=== PATIENT | male | born 1960 | race Caucasian/White ===

== ENCOUNTER 2017-05-21 23:34 | Inpatient (IN) | payer OTHER ==
[~2017-05-21] VITALS: Ht 170.2 cm; Wt 69.0 kg
[~2017-05-21 23:34] MED LIST: CHLO25CA9 PO; IBUP800T25 PO; LISI10TA2 PO
[2017-05-22] VITALS (7 sets, daily range): BP systolic 94–150; BP diastolic 54–87; PULSE 54–70; RESP 18; TEMP 98.5; Ht 170.2 cm; Wt 69.0 kg
[2017-05-22] MEDS ORDERED: HYDROmorphONE 1 MG/ML SYG IV STA (00:23)
[2017-05-22] MEDS ORDERED: ONDANSETRON 4 MG INJ IV STA (00:23)
[2017-05-22] MEDS ORDERED: SOD CHLORIDE 0.9% 1,000 ML IV STA (00:23)
[2017-05-22 00:39] LABS: URINE BLOOD (Dip) POC 1+ (NEGATIVE)
[2017-05-22] MEDS ORDERED: IOHEXOL 300MG/ML 150 ML BTL ONE (00:57)
[2017-05-22] MEDS ORDERED: SOD CHLORIDE 0.9% 100 ML ONE (00:57)
[2017-05-22 01:28] LABS: BASOPHIL # 0.1 10^3/ul (0.0-0.1); BASOPHILS % 0.6 % (0.0-2.0); HEMATOCRIT 43.8 % (42.0-52.0); HEMOGLOBIN 15.5 g/dl (14.0-18.0); LYMPHOCYTES # 1.3 10^3/ul (0.8-2.9); LYMPHOCYTES % 14.9 % (15.0-51.0); MEAN CORPUSCULAR HEMOGLOBIN 33.2 pg (29.0-33.0); MEAN CORPUSCULAR HGB CONC 35.4 g/dl (32.0-37.0); MEAN CORPUSCULAR VOLUME 93.8 fl (82.0-101.0); MEAN PLATELET VOLUME 10.3 fl (7.4-10.4); MONOCYTE # 0.7 10^3/ul (0.3-0.9); MONOCYTES % 7.7 % (0.0-11.0); NEUTROPHIL # 6.6 10^3/ul (1.6-7.5); NEUTROPHILS % 75.2 % (39.0-77.0); PLATELET COUNT 212 10^3/UL (140-415); RED BLOOD COUNT 4.67 10^6/ul (4.70-6.10); RED CELL DISTRIBUTION WIDTH 12.3 % (11.5-14.5); WHITE BLOOD COUNT 8.8 10^3/ul (4.8-10.8)
[2017-05-22 01:53] LABS: INR 0.96; PROTIME 12.8 Sec (12.2-14.2)
[2017-05-22 01:58] LABS: ALANINE AMINOTRANSFERASE 146 IU/L (13-69); ALBUMIN 4.7 g/dl (3.3-4.9); ALBUMIN/GLOBULIN RATIO 1.34; ALKALINE PHOSPHATASE 118 IU/L (42-121); ANION GAP 12 (8-16); ASPARTATE AMINO TRANSFERASE 233 IU/L (15-46); BILIRUBIN,INDIRECT 0.5 mg/dl (0-1.1); BILIRUBIN,TOTAL 0.5 mg/dl (0.2-1.3); BLOOD UREA NITROGEN 27 mg/dl (7-20); CALCIUM 9.7 mg/dl (8.4-10.2); CARBON DIOXIDE 30 mmol/L (21-31); CHLORIDE 100 mmol/L (97-110); CREATININE 1.15 mg/dl (0.61-1.24); GLUCOSE 125 mg/dl (70-220); POTASSIUM 3.8 mmol/L (3.5-5.1); SODIUM 138 mmol/L (135-144); TOTAL PROTEIN 8.2 g/dl (6.1-8.1)
[2017-05-22] MEDS ORDERED: HYDROmorphONE 1 MG/ML SYG IM STA (02:10)
[2017-05-22 02:19] LABS: ETHANOL < 10.0 mg/dl; TROPONIN-I < 0.012 ng/ml (0.00-0.12)
--- NOTE | 2017-05-22 02:19 | RADRPT ---
PROCEDURE: CT chest, abdomen and pelvis with contrast. CLINICAL INDICATION: Injury and pain. TECHNIQUE: CT of the chest, abdomen and pelvis was performed on a multi-detector high-resolution CT scanner. Contiguous axial images were obtained after the administration of 100 cc of Omnipaque-3 00 intravenous contrast. Coronal and sagittal reformatted images were also obtained. Images were r eviewed on the PACS workstation. One or more of the following dose reduction techniques were used: - Automated exposure control. - Adjustment of the mA and/or kV according to patient size. - Use of iterative reconstruction technique. Exam CTD/vol = 10.73 mGy. Total exam DLP = 839.83 mGy-cm. COMPARISON: CT abdomen and pelvis done 03/01/2014. FINDINGS: Chest: There is no evidence of chest wall mass. The visualized thyroid gland is unremarkable. Ther e are no enlarged axillary lymph nodes. There are no enlarged mediastinal or hilar lymph nodes. Th e heart is normal in size. There is no pericardial thickening or effusion. The aorta is of normal course and caliber. There is no parenchymal consolidation or pleural effusion. The central tracheo bronchial tree is within normal limits. There is mild bibasilar atelectasis. There is a tiny left a pical pneumothorax measuring approximately 1%. Abdomen: The liver is normal in size. There is no focal mass or dilatation of the biliary tree. T he gallbladder is not distended. The spleen, pancreas and bilateral adrenal glands are within rekha l limits. Bilateral kidneys are normal in size with symmetric enhancement. There are multiple beatris l cysts bilaterally. There is no hydronephrosis or hydroureter. There is no retroperitoneal adenopa thy. The abdominal aorta is of normal caliber. There is moderate retained stool within the colon. There is no bowel obstruction or free air. Ther e is no diverticulosis or diverticulitis. There is no ascites. Pelvis: The bladder is unremarkable. The prostate and seminal vesicles are within normal limits. There is no significant pelvic adenopathy or free fluid. Evaluation of the osseous structures demonstrates nondisplaced fractures of the right posterolateral seventh, eighth, ninth and tenth ribs. There is a fracture of the right medial 10th rib. There are nondisplaced fractures of the left posterior fifth, sixth and seventh ribs. There is an old fracture of the right clavicle. IMPRESSION: Bilateral nondisplaced rib fractures. Tiny left apical pneumothorax. Mild bibasilar atelectasis. A call report was made to Dr. Ledesma 02:18 a.m. .Merrick Sanchez MD, MD Date Time Electronically viewed and signed by .Merrick Sanchez MD, MD on 05/22/2017 02:19 .T/
--- NOTE | 2017-05-22 05:03 | ERD ---
ER Documentation Chief Complaint Date/Time DATE: 05/22/17 TIME: 04:54 Chief Complaint working under his car when car moved and hit him c/o rib pain and back pain HPI 56-year-old man complains of left lateral costal margin pain after a car fell on top of vein while he was working beneath it. The car was on top of him for about 5 minutes,4 people help physically lift the car off of him. He did not suffer any head or neck injury, no paresis or paresthesias, no chest pain or shortness of breath. ROS All systems reviewed and are negative except as per history of present illness. Medications Home Meds Active Scripts Chlordiazepoxide* (Chlordiazepoxide*) 25 Mg Capsule, 25 MG PO BID Y for CONTROL WITHDRAWAL SYMPTOMS, #14 CAP Prov:SEBASTIÁN FONSECA MD 03/04/16 Reported Medications Lisinopril* (Lisinopril*) 10 Mg Tablet, 10 MG PO DAILY, #30 TAB 03/04/16 Ibuprofen* (Ibuprofen*) 800 Mg Tab, 800 MG PO TID, TAB 09/30/14 Allergies Allergies: Coded Allergies: No Known Allergy (Unverified , 03/17/14) PMhx/Soc Hypertension History of Surgery: Yes (APPY, KIDNEY STONES REMOVAL) Anesthesia Reaction: No Hx Neurological Disorder: No Hx Respiratory Disorders: No Hx Cardiac Disorders: Yes (HTN TAKES MED SOMETIMES, BORDERLINE CHOL) Hx Psychiatric Problems: Yes (DEPRESSION NO MED) Hx Miscellaneous Medical Probl: No Hx Alcohol Use: Yes (2XWEEK 12 BEERS, LAST DRANK LAST NIGHT 12 BEERS) Hx Substance Use: No Hx Tobacco Use: Yes (27 YEARS AGO QUIT) Smoking Status: Former smoker FmHx Family History: No diabetes Physical Exam Vitals Vital Signs Date Time Temp Pulse Resp B/P Pulse Ox O2 Delivery O2 Flow Rate FiO2 05/22/17 00:39 84 24 157/96 95 05/21/17 23:41 98.2 84 20 203/102 100 Physical Exam GENERAL: Well-developed, well-nourished, well-hydrated, in no apparent distress , looks nontoxic in appearance HEENT: Moist mucous membranes, pink conjunctiva, no cervical spine tenderness or step-off deformities, no goiter, no jaundice or icterus, extraocular movements intact without pain. No submandibular induration, and no pharyngeal erythema NEURO: Alert and oriented 3, cranial nerves II through XII intact bilaterally, pupils equal round reactive to light, no focal deficits or facial asymmetry, sensation intact distally Strength 5/5 in upper and lower extremities bilaterally CARDIAC: Regular rate and rhythm, no murmurs rubs or gallops LUNGS: Clear bilaterally no wheezing crackles or stridor ABDOMEN: Soft nontender, no guarding, no rigidity, no rebound, no psoas sign no obturator sign. Normoactive bowel sounds SKIN: Warm and dry to touch, no abrasions, contusions, or hematomas, no lacerations, no ecchymosis, no target lesions, and without ulcers EXTREMITIES: No clubbing cyanosis or edema, calves are bilaterally symmetrical, no Homans sign, no popliteal cord sign. Distal pulses equal and bilateral PSYCH: Normal affect without agitation or irritability Result Diagram: 05/22/172905/22/1729 Results 24 hrs Laboratory Tests Test 05/22/17 00:30 05/22/17 00:47 White Blood Count 8.810^3/ul Red Blood Count 4.6710^6/ul Hemoglobin 15.5g/dl Hematocrit 43.8% Mean Corpuscular Volume 93.8fl Mean Corpuscular Hemoglobin 33.2pg Mean Corpuscular Hemoglobin Concent 35.4g/dl Red Cell Distribution Width 12.3% Platelet Count 40374^3/UL Mean Platelet Volume 10.3fl Neutrophils % 75.2% Lymphocytes % 14.9% Monocytes % 7.7% Eosinophils % 0.0% Basophils % 0.6% Nucleated Red Blood Cells % 0.0/100WBC Neutrophils # 6.610^3/ul Lymphocytes # 1.310^3/ul Monocytes # 0.710^3/ul Eosinophils # 0.010^3/ul Basophils # 0.110^3/ul Nucleated Red Blood Cells # 0.010^3/ul Prothrombin Time 12.8Sec Prothrombin Time Ratio 1.0 INR International Normalized Ratio 0.96 Sodium Level 138mmol/L Potassium Level 3.8mmol/L Chloride Level 100mmol/L Carbon Dioxide Level 30mmol/L Anion Gap 12 Blood Urea Nitrogen 27mg/dl Creatinine 1.15mg/dl Glucose Level 125mg/dl Calcium Level 9.7mg/dl Total Bilirubin 0.5mg/dl Direct Bilirubin 0.00mg/dl Indirect Bilirubin 0.5mg/dl Aspartate Amino Transf (AST/SGOT) 233IU/L Alanine Aminotransferase (ALT/SGPT) 146IU/L Alkaline Phosphatase 118IU/L Troponin I < 0.012ng/ml Total Protein 8.2g/dl Albumin 4.7g/dl Globulin 3.50g/dl Albumin/Globulin Ratio 1.34 Lipase 142U/L Ethyl Alcohol Level < 10.0mg/dl Bedside Urine pH (LAB) 7.0 Bedside Urine Protein (LAB) Trace Bedside Urine Glucose (UA) Negative Bedside Urine Ketones (LAB) 1+ Bedside Urine Blood 1+ Bedside Urine Nitrite (LAB) Negative Bedside Urine Leukocyte Esterase (L Negative Current Medications Medications (Trade) Dose Ordered Sig/Blayne Route PRN Reason Start Time Stop Time Status Last Admin Dose Admin Sodium Chloride (NS) 1,000 ml @ 1,000 mls/hr Q1H STAT IV 05/22/17 00:23 05/22/17 01:22 DC 05/22/17 00:39 Hydromorphone HCl (Dilaudid) 1 mg ONCE STAT IV 05/22/17 00:23 05/22/17 00:25 DC 05/22/17 00:39 Ondansetron HCl 4 mg 4 mg ONCE STAT IV 05/22/17 00:23 05/22/17 00:26 DC 05/22/17 00:39 Sodium Chloride (NS) 100 ml @ ud STK-MED ONCE .ROUTE 05/22/17 00:57 05/22/17 00:58 DC Iohexol (Omnipaque 300mg/ ml) 150 ml STK-MED ONCE .ROUTE 05/22/17 00:57 05/22/17 00:58 DC Hydromorphone HCl (Dilaudid) 1 mg ONCE STAT IM 05/22/17 02:10 05/22/17 02:11 DC 05/22/17 02:15 Procedures/MDM IV line was established patient was placed on cardiac surgeon rhythm strip revealed a sinus rhythm at about 80 bpm with upright P and T waves. Patient was afebrile. I administered 1 L normal saline intravenously and hydromorphone 1 mg IV [address] scan of the chest, abdomen, pelvis with IV contrast was performed given his trauma. There was bilateral rib fractures minimally displaced with "tiny" left pneumothorax as read to me by the radiologist over the phone. No other acute traumatic injury noted. CBC and electrolytes were normal, liver function tests are normal, troponin was negative. Urinalysis negative for infection. Will be admitted to telemetry setting for continued medical management and repeat imaging, at this time his breathing is unlabored and his oxygen saturation is normal, I feel the risks of chest tube outweigh the benefits as his small pneumothorax may resolve spontaneously. Departure Diagnosis: Primary Impression: Multiple fractures of ribs, bilateral, initial encounter for closed fracture Additional Impression: Pneumothorax Pneumothorax type: traumatic Encounter type: initial encounter Qualified Code: S27.0XXA - Traumatic pneumothorax, initial encounter Condition: SEBASTIÁN Price MD May 22, 2017 05:03
[2017-05-22] MEDS ORDERED: NACL 0.9% 3 ML SYG IV SCH (06:00)
[2017-05-22] MEDS ORDERED: ACETAMINOPHEN 325 MG TAB PO PRN (06:00)
[2017-05-22] MEDS ORDERED: LORAZEPAM 2 MG INJ IV PRN ×2 (06:00)
[2017-05-22] MEDS ORDERED: LORAZEPAM 0.5 MG TAB PO PRN (06:00)
[2017-05-22] MEDS ORDERED: ALBUTEROL/IPRATROPIUM (NEB) 3 ML AMP HHN PRN (06:00)
[2017-05-22] MEDS ORDERED: ONDANSETRON 4 MG INJ IV PRN (06:00)
--- NOTE | 2017-05-22 06:48 | HP ---
Date/Time of Note Date/Time of Note DATE: 05/22/17 TIME: 06:40 Assessment/Plan VTE Prophylaxis VTE Prophylaxis Intervention: SCD's Assessment/Plan Assessment/Plan ASSESSMENT 56-year-old male with history of hypertension who was found to have bilateral non-displaced rib fracture and tiny left-sided pneumothorax s/p traumatic injury PLAN -will provide pain medication as needed -He will be placed on oxygen [id number] for the tiny pneumothorax noted on the chest CT. consider pulmonary consult -Patient also reported drinking 12 cans of beer 2 or 3 times a week, last drink being yesterday. He takes Valium for withdrawal symptoms. As such, I will place him on a banana bag and a Librium with as needed Ativan -Continue lisinopril -Elevated transaminases is most likely from alcoholic liver disease, but will obtain right upper quadrant ultrasound. HPI/ROS Admit Date/Time Admit Date/Time Hx of Present Illness This is a 56-year-old male with a history of hypertension who presented to the emergency department complaining of total body pain, mainly on his ribs. Patient was working underneath a car when it fell on top of him. In the ER, CT chest showed nondisplaced bilateral rib fracture and tiny left-sided pneumothorax. Although not uploaded on the system, was told by the ER physician that the CT abdomen/pelvis was done which is negative for acute findings. Labs shows AST and ALT in the 200 range otherwise within acceptable range. He said he drinks about 12 cans of beer 2 or 3 times a week, last drink being yesterday. He denies shortness of breath. PMH/Family/Social Past Medical History Medical History: hypertension Social History Alcohol Use: other (12 counts of beer 2 or 3 times a week) Smoking Status: Unknown if ever smoked Drug Use: none Exam/Review of Systems Vital Signs Vitals Vital Signs Date Time Temp Pulse Resp B/P Pulse Ox O2 Delivery O2 Flow Rate FiO2 05/22/17 05:38 98.5 65 12 107/76 97 Room Air Exam Constitutional: alert, oriented, well developed Head: atraumatic, normocephalic Eyes: EOMI, PERRL Respiratory: clear to auscultation, normal air movement Cardiovascular: nl pulses, regular rate and rhythm Gastrointestinal: soft, tender Musculoskeletal: other (Palpation of the ribs bilaterally causes tenderness) Extremities: normal pulses Labs Result Diagram: 10/2/17 0030 05/22/17 003 Medications Medications Current Medications Lorazepam (Ativan) 2 mg Q1H PRN IV alcohol withdrawal; Start 05/22/17 at 06:00 Chlordiazepoxide 50 mg 50 mg TID PO ; Start 05/22/17 at 09:00; Stop 05/24/17 at 08:00 Multivitamins 10 ml/Thiamine HCl 100 mg/Folic Acid 1 mg/Sodium Chloride 1,011.2 ml @ 125 mls/ hr DAILY@09 IVPB ; Start 05/22/17 at 09:00; Stop 05/25/17 at 08: 00 Sodium Chloride (NS) 1,000 ml @ 100 mls/hr Q10H IV ; Start 05/22/17 at 06:00; Stop 05/23/17 at 23:00 Lorazepam (Ativan) 0.5 mg Q8H PRN PO ANXIETY; Start 05/22/17 at 06:00 Ondansetron HCl (Zofran Inj) 4 mg Q6H PRN IV NAUSEA AND/OR VOMITING; Start 05/22/17 at 06:00 Acetaminophen (Tylenol Tab) 650 mg Q6H PRN PO PAIN LEVEL 1-3 OR FEVER; Start 05/22/17 at 06:00 Morphine Sulfate (morphine) 4 mg Q4H PRN IV PAIN LEVEL 7-10; Start 05/22/17 at 06:00 Lisinopril (Zestril) 10 mg DAILY PO ; Start 05/22/17 at 09:00 ALESHA OLIVO MD May 22, 2017 06:48
[2017-05-22] MEDS: morphine 4 MG/ML VIAL IV PRN ×3 (07:24→18:39)
--- NOTE | 2017-05-22 07:31 | RADRPT ---
PROCEDURE: US Abdomen (right upper quadrant). CLINICAL INDICATION: Right upper quadrant abdomen pain. TECHNIQUE: Multiple real-time longitudinal and transverse images of the right upper quadrant of th e abdomen were acquired utilizing a curved array transducer. Images were reviewed on a high-resoluti on PACS workstation. COMPARISON: CT scan of the abdomen and pelvis dated 03/01/2014. FINDINGS: The liver is normal in size and normal in echogenicity. There is no focal hepatic lesion. Color Doppler and pulsed Doppler sonography demonstrate normal a ntegrade flow in the portal vein. The gallbladder is normal with no stones or wall thickening. There is no pericholecystic fluid kelly ection. The bile ducts are normal with the common bile duct measuring 4.7 mm in diameter. The visualized portions of the pancreas are unremarkable with obscuration of the tail of the pancrea s. No free fluid is present. The right kidney measures 10.0 cm. There is normal echogenicity of the right kidney. There is no perinephric fluid collection. No hydronephrosis, mass, or calculus is seen. IMPRESSION: 1. Unremarkable right upper quadrant abdomen ultrasound. RPTAT: QQ .Malcolm Humphries MD, Date Time Electronically viewed and signed by .Malcolm Humphries MD, on 05/22/2017 07:30 .R/
[2017-05-22] MEDS: CHLORDIAZEPOXIDE 25 MG CAP PO SCH ×2 (08:56→14:23)
[2017-05-22] MEDS ORDERED: HYDROmorphONE 1 MG/ML SYG IV PRN (09:00)
[2017-05-22] MEDS ORDERED: LISINOPRIL 10 MG TAB PO SCH (09:00)
[2017-05-22] MEDS ORDERED: MULTIVITAMINS 10 ML, THIAMINE 100 MG, FOLIC ACID 1 MG in SOD CHLORIDE 0.9% 1,000 ML IVPB SCH (09:00)
[2017-05-22] MEDS ORDERED: FOLIC ACID 1 MG TAB PO ONE (09:30)
[2017-05-22] MEDS ORDERED: THIAMINE 100 MG TAB PO ONE (09:30)
[2017-05-22] MEDS: SOD CHLORIDE 0.9% 1,000 ML IV SCH ×2 (10:39→17:05)
--- NOTE | 2017-05-22 10:43 | RADRPT ---
PROCEDURE: XR Chest. CLINICAL INDICATION: Left pneumothorax. Trauma. TECHNIQUE: Two views. Frontal and lateral. COMPARISON: CT scan of the chest done earlier the same day. FINDINGS: The lungs are clear. The heart size is normal. There is no pleural effusion. The pneumothorax seen on CT scan is not visualized with plain radiogra ph. There is an old healed fracture of the midshaft of the right clavicle. There is an acute fracture of the right eighth rib. IMPRESSION: 1. No pneumothorax visualized with plain radiograph. 2. Old healed fracture of right clavicle. 3. Acute fracture of right eighth rib. RPTAT: QQ .Malcolm Humphries MD, MD Date Time Electronically viewed and signed by .Malcolm Humphries MD, on 05/22/2017 10:43 .R/
--- NOTE | 2017-05-22 14:47 | PDOCDIS ---
Discharge Instructions CONDITION Patient Condition: Stable ACTIVITY: Activity Restrictions: Slowly Increase Activity FOLLOW UP/APPOINTMENTS Follow-up Plan Use the incentive spirometer as directed by the nurse Follow up with your regular doctor within 3 days for repeat xrays of your ribs/ lungs Use el espirmetro de incentivo segn las instrucciones de la enfermera Siga con russ mdico habitual dentro de los 3 kwon para radiografas repetidas de lesly costillas / pulmones OTHER ORDERS: Other Orders: What Are Rib Fractures? Rib fractures most commonly result from strong blows to the chest such as during car crashes, ATV crashes, or falls. The terms rib fractures, broken ribs, and cracked ribs all mean the same thing. Most patients have twelve ribs on each side. The more ribs that are fractured, the more likely a patient is to develop significant complications. How Are Rib Fractures Treated? Pain control is most important in treating patients with rib fractures. Broken ribs hurt; people with these injuries are understandably hesitant to take deep breaths and cough. Deep breathing and coughing are very important in keeping your lungs expanded and clear of mucous. Narcotic pain medicines, in conjunction with anti-inflammatory medicines, are usually used to treat rib fracture pain so that patients are able to breath, cough, and move. Patients with severe pain which is limiting their breathing and activity may have an epidural catheter placed while in the hospital to control their pain. Prior to discharge from the hospital, pain needs to be controlled well with oral medicines. Very rarely, rib fractures which are severely displaced and/or are sticking into the lung may require surgical repair. As a rule, we generally do not recommend wrapping the chest as a treatment for rib fractures as it limits the ability to take deep breaths. After Discharge Instructions: -Continued pain control is very important to complete recovery. Pain should be controlled so that deep breathing, coughing, using the spirometer, and walking multiple times daily are all possible. Broken rib pain will slowly improve over the course of 6-12 weeks. Some patients notice tenderness for as long as 6 months. -Keep follow-up appointments as directed. See a Primary Care Doctor for a follow -up x-ray to ensure continued evidence of healing will be arranged prior to discharge. -If worsening shortness of breath, chest tightness or pressure, or difficulty breathing develops seek emergency medical care. -Signs or symptoms of pneumonia include fevers, chills, feeling short of breath , cough, and malaise (generally not feeling well). If these symptoms arise call your Primary Care Doctor, or seek emergency medical care. Qu son las fracturas de park? Las fracturas de la park resultan ms comnmente de golpes nelly al pecho tales negrita erick choques de coche, accidentes de ATV, o cadas. Los trminos fracturas de costillas, costillas rotas y costillas agrietadas significan lo mismo. La mayora de los pacientes doce costillas a cada lado. Cuantas ms costillas se fracturen, ms probable es que un paciente desarrolle complicaciones. Resource Conservationist se tratan las fracturas de park? El control del dolor es ms importante en el tratamiento de pacientes con fracturas costillas. Las costillas rotas le duelen; personas con estos las lesiones son comprensiblemente vacilantes a chris respiraciones profundas y tos. La respiracin profunda y la tos son muy importante para mantener los pulmones expandidos y libres de mucosidad. Los medicamentos narcticos para el dolor, los medicamentos anti-inflamatorios, se utilizan generalmente para tratar el dolor de fractura de park para que los pacientes son capaces de respirar, tos y moverse. Los pacientes con dolor dain que est limitando russ respiracin y actividad pueden tener jagjit epidural cateter colocado en el hospital para controlar russ dolor. Antes de salir del hospital, el dolor debe ser kale controlado con medicamentos orales. Muy raramente, las fracturas de park que se desplazan gravemente y / o se pegan en el pulmn pueden requerir ciruga reparar. Por ivan general, generalmente no recomendamos envolver el trax negrita un tratamiento para las fracturas de park ya que limita el capacidad de chris respiraciones profundas. Despus de las Instrucciones de namrata: -Continuado control del dolor es muy importante para completar la recuperacin. El dolor debe ser controlado para que respirar, toser, usar el espirmetro y caminar varias veces al da son posibles. El dolor de park roto lentamente en el curso de 6-12 semanas. Algunos pacientes notan ternura erick tanto tiempo negrita 6 meses. -Mantenga las citas de seguimiento segn las instrucciones. Consulte a un m dico de atencin primaria para jagjit radiografa de seguimiento para asegurarse de que la evidencia continua de curacin se arreglar antes del namrata. -Si empeora la dificultad para respirar, se siente opresin o presin en el pecho o si tiene dificultad para respirar busque urgencia atencin mdica. -Signos o sntomas de neumona incluyen fiebres, escalofros, falta de aliento, tos y malestar (generalmente no sentirse kale). Si aparecen estos sntomas, llame a russ mdico de atencin primaria o busque atencin de emergencia. atencin mdica. ADILSON URIOSTEGUI MD May 22, 2017 14:47
[2017-05-22] MEDS ORDERED: NAPR-265 PO (14:49)
[2017-05-22] MEDS ORDERED: HYDR-906 PO (14:51)
--- NOTE | 2017-05-22 14:55 | DS ---
Date/Time of Note Date/Time of Note DATE: 05/22/17 TIME: 14:53 Discharge Summary Admission/Discharge Info Admit Date/Time May 22, 2017 at 02:28 Discharge Date/Time Discharge Diagnosis acute nondisplaced R 8th rib fracture Patient Condition: Stable Procedures CXR 10.2 (11am) IMPRESSION: 1. No pneumothorax visualized with plain radiograph. 2. Old healed fracture of right clavicle. 3. Acute fracture of right eighth rib. CT chest 10.2 (2am) IMPRESSION: Bilateral nondisplaced rib fractures. Tiny left apical pneumothorax. Mild bibasilar atelectasis. Hx of Present Illness This is a 56-year-old male with a history of hypertension who presented to the emergency department complaining of total body pain, mainly on his ribs. Patient was working underneath a car when it fell on top of him. In the ER, CT chest showed nondisplaced bilateral rib fracture and tiny left-sided pneumothorax. Although not uploaded on the system, was told by the ER physician that the CT abdomen/pelvis was done which is negative for acute findings. Labs shows AST and ALT in the 200 range otherwise within acceptable range. He said he drinks about 12 cans of beer 2 or 3 times a week, last drink being yesterday. He denies shortness of breath. Hospital Course Pt presented with R rib pain following falling into some blocks while fixing a car. Initial imaging concerning for both R nondisplaced rib fracture and small ptx. Pt started on supplemental O2. Repeat chest/lung imaging without evidence of pneumothorax. Regarding pt's EtOH hx, Kiny[place] language line used to facilitate communication. Pt states he does not drink 12 beers at time. Instead drinks 3 beers/day. CAGE questionnaire 0/4. Pt received IS teaching prior to discharge. Pt discharged with pain meds and will see his primary care clinic tomorrow for repeat imaging. Copy of dc summary provided to patient to bring to PCP. Importance of IS use discussed at length with patient given his rib fracture to prevent pna, atelectasis, etc Home Meds Reported Medications Lisinopril* (Lisinopril*) 10 Mg Tablet, 10 MG PO DAILY, #30 TAB 03/04/16 Discontinued Reported Medications Ibuprofen* (Ibuprofen*) 800 Mg Tab, 800 MG PO TID, TAB 09/30/14 Discontinued Scripts Chlordiazepoxide* (Chlordiazepoxide*) 25 Mg Capsule, 25 MG PO BID Y for CONTROL WITHDRAWAL SYMPTOMS, #14 CAP Prov:SEBASTIÁN FONSECA MD 03/04/16 Follow-up Plan Use the incentive spirometer as directed by the nurse Follow up with your regular doctor within 3 days for repeat xrays of your ribs/ lungs Use el espirmetro de incentivo segn las instrucciones de la enfermera Siga con russ mdico habitual dentro de los 3 kwon para radiografas repetidas de lesly costillas / pulmones Primary Care Provider Mirella Cummings Pending Labs Laboratory Tests Test 05/22/17 00:30 05/22/17 00:47 White Blood Count 8.810^3/ul (4.8-10.8) Red Blood Count 4.6710^6/ul (4.70-6.10) Hemoglobin 15.5g/dl (14.0-18.0) Hematocrit 43.8% (42.0-52.0) Mean Corpuscular Volume 93.8fl (82.0-101.0) Mean Corpuscular Hemoglobin 33.2pg (29.0-33.0) Mean Corpuscular Hemoglobin Concent 35.4g/dl (32.0-37.0) Red Cell Distribution Width 12.3% (11.5-14.5) Platelet Count 83233^3/UL (140-415) Mean Platelet Volume 10.3fl (7.4-10.4) Neutrophils % 75.2% (39.0-77.0) Lymphocytes % 14.9% (15.0-51.0) Monocytes % 7.7% (0.0-11.0) Eosinophils % 0.0% (0.0-7.0) Basophils % 0.6% (0.0-2.0) Nucleated Red Blood Cells % 0.0/100WBC (0.0-0.0) Neutrophils # 6.610^3/ul (1.6-7.5) Lymphocytes # 1.310^3/ul (0.8-2.9) Monocytes # 0.710^3/ul (0.3-0.9) Eosinophils # 0.010^3/ul (0.0-0.5) Basophils # 0.110^3/ul (0.0-0.1) Nucleated Red Blood Cells # 0.010^3/ul (0.0-0.0) Prothrombin Time 12.8Sec (12.2-14.2) Prothrombin Time Ratio 1.0 INR International Normalized Ratio 0.96 Sodium Level 138mmol/L (135-144) Potassium Level 3.8mmol/L (3.5-5.1) Chloride Level 100mmol/L (97-110) Carbon Dioxide Level 30mmol/L (21-31) Anion Gap 12 (8-16) Blood Urea Nitrogen 27mg/dl (7-20) Creatinine 1.15mg/dl (0.61-1.24) Glucose Level 125mg/dl (70-220) Calcium Level 9.7mg/dl (8.4-10.2) Total Bilirubin 0.5mg/dl (0.2-1.3) Direct Bilirubin 0.00mg/dl (0.00-0.20) Indirect Bilirubin 0.5mg/dl (0-1.1) Aspartate Amino Transf (AST/SGOT) 233IU/L (15-46) Alanine Aminotransferase (ALT/SGPT) 146IU/L (13-69) Alkaline Phosphatase 118IU/L (42-121) Troponin I < 0.012ng/ml (0.00-0.12) Total Protein 8.2g/dl (6.1-8.1) Albumin 4.7g/dl (3.3-4.9) Globulin 3.50g/dl (1.3-3.2) Albumin/Globulin Ratio 1.34 Lipase 142U/L (23-300) Ethyl Alcohol Level < 10.0mg/dl Bedside Urine pH (LAB) 7.0 (5.0-8.5) Bedside Urine Protein (LAB) Trace (NEGATIVE) Bedside Urine Glucose (UA) Negative (NEGATIVE) Bedside Urine Ketones (LAB) 1+ (NEGATIVE) Bedside Urine Blood 1+ (NEGATIVE) Bedside Urine Nitrite (LAB) Negative (NEGATIVE) Bedside Urine Leukocyte Esterase (L Negative (NEGATIVE) ADILSON URIOSTEGUI MD May 22, 2017 14:55
[2017-05-23] MEDS ORDERED: THIAMINE 100 MG TAB PO SCH (09:00)
[2017-05-23] MEDS ORDERED: FOLIC ACID 1 MG TAB PO SCH (09:00)
[2017-05-23] MEDS ORDERED: INFLUENZA VIRUS VACCINE 0.5 ML SYG IM* ONE (12:00)
== END 2017-05-22 19:25 | disposition home or self-care (01) | DRG 206 ==
LOC: E/R 23:34 → TEL 05-22 02:28
PROVIDERS: ADMIT Internal Medicine; ATTEND Internal Medicine
DX: S22.32XA Fracture of one rib, left side, initial encounter for closed fracture (principal); I10 Essential (primary) hypertension; S22.31XA Fracture of one rib, right side, initial encounter for closed fracture; W20.8XXA Other cause of strike by thrown, projected or falling object, initial encounter
CPT/HCPCS: 36415; 71020; 71260; 74177; 76705; 80053; 80306; 81003; 83690; 84484; 85025; 85610; 96372; 96374; 96375; J1170; J2270; J2405; J3411; J7030; Q9967

== ENCOUNTER 2018-08-16 15:59 | Emergency (ER) | END 2018-08-16 18:43 | disposition home or self-care (01) ==